=== PATIENT | female | born 1965 ===

== ENCOUNTER 2017-09-11 11:11 | Outpatient (CLI) | payer OTHER | END 2017-09-11 15:00 | disposition home or self-care (01) | LOC: TOM 11:11 | DX: R22.1 Localized swelling, mass and lump, neck (principal) | CPT/HCPCS: 70491; Q9965 ==

== ENCOUNTER 2024-02-11 13:50 | Outpatient (CLI) | payer OTHER | END 2024-02-11 13:51 | disposition home or self-care (01) | LOC: NUCLEAR 13:50 | PROVIDERS: ATTEND Internal Medicine Cardiovascular Disease | DX: M81.0 Age-related osteoporosis without current pathological fracture (principal); E55.9 Vitamin D deficiency, unspecified; Z12.31 Encounter for screening mammogram for malignant neoplasm of breast ==